=== PATIENT | male | born 1975 | race Caucasian/White ===

== ENCOUNTER → 2016-12-06 | Outpatient (CLI) | payer OTHER ==
[~2016-12-06] MED LIST: ACET-1175 PO; ATV5 PO; CETICHW4 PO; HYDR-1838 PO; IBUP-1450 PO; LEVO175T PO; MAGN400T6 PO; ONDA4TAB46 PO; PANT40TA PO; POTA-327 PO; PROP10TA7 PO; TIZA2CAP PO
[2016-12-06 09:49] LABS: ALT/SGPT 41 U/L (12-78); BLOOD UREA NITROGEN 25 mg/dl (7-18); BUN/CREATININE RATIO 20.6 (10-20); CARBON DIOXIDE 28 mmol/L (21-32); CHLORIDE 105 mmol/L (98-107); CHOLESTEROL 168 mg/dl (0-200); GLUCOSE 91 mg/dl (70-99); MAGNESIUM 2.1 mg/dl (1.8-2.4); POTASSIUM 3.8 mmol/L (3.5-5.1); SODIUM 142 mmol/L (136-145)
[2016-12-06 10:00] LABS: ALB/GLOB RATIO 1.1 (0.9-2); ALKALINE PHOSPHATASE 68 U/L (45-117); AST/SGOT 22 U/L (15-37); CHOLESTEROL/HDL RATIO 2.8; HDL CHOLESTEROL 61 mg/dl; LDL CHOLESTEROL CALCULATED 93 mg/dl; TRIGLYCERIDES 69 mg/dl (0-150); VERY LOW DENSITY LIPOPROT CALC 14 mg/dl
[2016-12-06 10:06] LABS: CALCIUM 9.1 mg/dl (8.5-10.1)
== END | disposition home or self-care (01) ==
LOC: C.LAB 07:47
PROVIDERS: ATTEND Family Medicine
DX: E03.9 Hypothyroidism, unspecified (principal); E83.42 Hypomagnesemia; Z13.220 Encounter for screening for lipoid disorders; E87.6 Hypokalemia

== ENCOUNTER → 2017-06-09 | Outpatient (CLI) | payer OTHER ==
[2017-06-09 15:25] LABS: BLOOD UREA NITROGEN 25 mg/dl (7-18); BUN/CREATININE RATIO 21.7 (10-20); CALCIUM 9.3 mg/dl (8.5-10.1); CARBON DIOXIDE 30 mmol/L (21-32); CHLORIDE 102 mmol/L (98-107); CREATININE 1.13 mg/dl (0.60-1.40); GLUCOSE 71 mg/dl (70-99); POTASSIUM 3.6 mmol/L (3.5-5.1); SODIUM 138 mmol/L (136-145)
[2017-06-09 15:48] LABS: THYROID STIMULATING HORMONE 0.635 uIu/ml (0.300-4.500)
== END | disposition home or self-care (01) ==
LOC: C.LAB 12:29
PROVIDERS: ATTEND Physician Assistant Medical
DX: E87.6 Hypokalemia (principal); E83.42 Hypomagnesemia; E03.9 Hypothyroidism, unspecified

== ENCOUNTER → 2017-06-26 | Outpatient (CLI) | payer OTHER ==
--- NOTE | 2017-06-26 07:59 | DIAGNOSTIC IMAGING REPORT ---
SINUS CT WITHOUT CONTRAST CLINICAL HISTORY: Recurrent acute sinusitis. COMPARISON STUDY: CT of the sinuses August 25, 2015. Technique: Helical axial images of the sinuses were obtained without IV contrast. Coronal reformats were viewed. A dose lowering technique was utilized adhering to the principles of ALARA. CT DOSE: 611.14 mGy.cm FINDINGS: Mastoid air cells are clear. Visualized portions of the intracranial contents are unremarkable on this exam. The patient is status post partial ethmoidectomies and resection of the medial jacobsen of the bilateral maxillary sinuses as well as resection of a portion of the frontal process of the right maxilla. There is mild polypoid mucosal thickening of the sinuses, most pronounced within the bilateral maxillary sinus and right posterior ethmoid air cells. Findings have improved within the maxillary sinuses with slight increase in polypoid mucosal thickening within the right posterior ethmoid air cells.. The major drainage pathways are patent. There are no air-fluid levels. There is no bony destruction. The cribriform plate is intact. IMPRESSION: 1. Mild polypoid mucosal thickening of the sinuses. Overall, mild improvement since exam of August 25, 2015. However, slight increase in mucosal thickening within the right posterior ethmoid air cells since prior exam. No CT evidence of acute sinusitis. 2. Postoperative findings within the sinuses, as described above. Patent drainage pathways. Electronically signed by: Jasvir Araya M.D. 06/26/2017 7:57 AM Dictated Date/Time: 06/26/2017 7:40 AM
== END | disposition home or self-care (01) ==
LOC: C.CTS 07:27
PROVIDERS: ATTEND Internal Medicine
DX: J01.91 Acute recurrent sinusitis, unspecified (principal); Z90.89 Acquired absence of other organs